=== PATIENT | female | born 1935 | race Caucasian/White ===

== ENCOUNTER 2017-10-08 14:30 | Emergency (ER) | payer MEDICARE ==
[~2017-10-08] VITALS: Ht 162.6 cm; Wt 54.5 kg
[~2017-10-08 14:30] MED LIST: FISH1000 PO; MULT-65 PO; ZOFR4TAB3 SL
[2017-10-08] MEDS ORDERED: IOHEXOL 350 MG/ML 10 ML VIAL (for RAD DIAG) IVCONTRAST ONE (14:31)
[2017-10-08] MEDS ORDERED: GADODIAMIDE PF 287 MG/ML 20 ML VIAL (for RAD MRI) IV PUSH ONE (14:31)
[2017-10-08 14:33] VITALS: BP 137/65; PULSE 67; RESP 13; TEMP 97.4; O2SAT 100
[2017-10-08 14:44] VITALS: BP 141/64; PULSE 61; RESP 14; O2SAT 100
[2017-10-08] MEDS ORDERED: ONDANSETRON HCL 4 MG/2 ML VIAL IV PUSH ONE (14:45)
[2017-10-08 14:58] VITALS: O2SAT 100
[2017-10-08] MEDS ORDERED: MORPHINE SULFATE 2 MG/ML INJ IV PUSH ONE (15:00)
[2017-10-08] MEDS ORDERED: SODIUM CHLORID 0.9% 500 ML INJ 500 ML IV ONE (15:00)
[2017-10-08] MEDS ORDERED: MORPHINE SULFATE 4 MG/ML INJ IV PUSH ONE (15:00)
--- NOTE | 2017-10-08 15:08 | PD ---
HPI Chief Complaint: Headache Time Seen by Provider: 14:40 Travel History International Travel<30 days: No Contact w/Intl Traveler<30days: No Traveled to known affect area: No History of Present Illness HPI 82-year-old female that presents to the ED for evaluation of nausea vomiting and headache. Per patient she doesn't really have a headache but more like a pressure. Per patient the pressure goes to her neck as well. Per patient the pain is 2 out of 10. Per patient she is feels very very nauseous. She has a history of aneurysm and was told by Dr. Osullivan to come here to get evaluated. She 's never had any bleed. She takes no blood thinners. She does have a history of high blood pressure. She is unable to tolerate anything today. She threw up multiple times. She's not been able to be anything today. Last and she had anything was yesterday night. Denies any chest pain or shortness of breath. No numbness, tilling, weakness. She says that closing her eyes makes her better. Allergies to sulfa and metronidazole. Denies any falls or injuries. Has not had surgery for the aneurysm. PFSH Past Medical History Asthma: Yes ( CHILD) Neurologic: Yes (ANEURYSM) Para: 5 Past Surgical History Joint Replacement: Yes (RIGHT KNEE REPLACEMENT) Tonsillectomy: Yes Other Surgery: Yes (HEMMORHOIDECTOMY) Social History Alcohol Use: Yes (DAILY) Tobacco Use: No Substance Use: No Allergies-Medications (Allergen,Severity, Reaction): Coded Allergies: metronidazole (Unverified Adverse Reaction, Severe, VOMIT, 10/08/17) Sulfa (Sulfonamide Antibiotics) (Unverified Adverse Reaction, Intermediate , RASH, 10/08/17) Reported Meds & Prescriptions Reported Meds & Active Scripts Active Zofran ODT (Ondansetron HCl) 4 Mg Tab 4 Mg SL Q6H PRN FOR NAUSEA/VOMITING Reported Fish Oil 1,000 Mg Cap 1,000 Mg PO DAILY Multi-Vitamin Daily (Multivitamins) Daily Tab 1 Tab PO DAILY Review of Systems Except as stated in HPI: all other systems reviewed are Neg Physical Exam Narrative GENERAL: SKIN: Warm and dry. HEAD: Atraumatic. Normocephalic. EYES: Pupils equal and round 4 mms reactive to light and accommodation. No scleral icterus. No injection or drainage. ENT: No nasal bleeding or discharge. Mucous membranes pink and moist. Tongue is midline. No uvula deviation. NECK: Trachea midline. No JVD. CARDIOVASCULAR: Regular rate and rhythm. No murmurs, S3, S4. RESPIRATORY: No accessory muscle use. Clear to auscultation. Breath sounds equal bilaterally. GASTROINTESTINAL: Abdomen soft, non-tender, nondistended. Hepatic and splenic margins not palpable. MUSCULOSKELETAL: Extremities without clubbing, cyanosis, or edema. No obvious deformities. Full range of motion of the upper and lower extremities bilaterally. 2+ pulses bilaterally. NEUROLOGICAL: Awake and alert. No obvious cranial nerve deficits. Motor grossly within normal limits. Five out of 5 muscle strength in the arms and legs. Normal speech. PSYCHIATRIC: Appropriate mood and affect; insight and judgment normal. Data Data Last Documented VS Vital Signs Date Time Temp Pulse Resp B/P (MAP) Pulse Ox O2 Delivery O2 Flow Rate FiO2 10/08/17 19:13 10/08/17 14:58 100 Room Air 10/08/17 14:44 61 14 10/08/17 14:33 97.4 Orders Orders Complete Blood Count With Diff (10/08/17 14:40) Basic Metabolic Panel (Bmp) (10/08/17 14:40) Comprehensive Metabolic Panel (10/08/17 14:40) Prothrombin Time / Inr (Pt) (10/08/17 14:40) Act Partial Throm Time (Ptt) (10/08/17 14:40) Magnesium (Mg) (10/08/17 14:40) Ct Brain W/O Iv Contrast(Rout) (10/08/17 14:40) Iv Access Insert/Monitor (10/08/17 14:40) Ecg Monitoring (10/08/17 14:40) Oximetry (10/08/17 14:40) Ondansetron Inj (Zofran Inj) (10/08/17 14:45) Cta Brain W Iv Contrast W 3d (10/08/17 ) Cta Neck W Iv Contrast W 3d (10/08/17 ) Morphine Inj (Morphine Inj) (10/08/17 15:00) Sodium Chlorid 0.9% 500 Ml Inj (Ns 500 M (10/08/17 15:00) Morphine Inj (Morphine Inj) (10/08/17 15:00) Troponin I (10/08/17 15:12) Electrocardiogram (10/08/17 ) Chest, Single Ap (10/08/17 ) Prochlorperazine Inj (Compazine Inj) (10/08/17 15:15) Diphenhydramine Inj (Benadryl Inj) (10/08/17 15:15) Iohexol 350 Inj (Omnipaque 350 Inj) (10/08/17 14:31) Lipase (10/08/17 16:40) Mra Carotids W Contrast (10/08/17 ) Mra Brain W/O Contrast (Cow) (10/08/17 ) Gadodiamide Pf Inj (Omniscan Pf Inj) (10/08/17 14:31) Ed Discharge Order (10/08/17 19:10) Labs Laboratory Tests Test 10/08/17 15:00 10/08/17 16:55 White Blood Count 5.1 TH/MM3 Red Blood Count 3.77 MIL/MM3 Hemoglobin 13.1 GM/DL Hematocrit 36.7 % Mean Corpuscular Volume 97.5 FL Mean Corpuscular Hemoglobin 34.8 PG Mean Corpuscular Hemoglobin Concent 35.7 % Red Cell Distribution Width 14.1 % Platelet Count 273 TH/MM3 Mean Platelet Volume 8.5 FL Neutrophils (%) (Auto) 61.6 % Lymphocytes (%) (Auto) 30.0 % Monocytes (%) (Auto) 6.8 % Eosinophils (%) (Auto) 0.5 % Basophils (%) (Auto) 1.1 % Neutrophils # (Auto) 3.1 TH/MM3 Lymphocytes # (Auto) 1.5 TH/MM3 Monocytes # (Auto) 0.3 TH/MM3 Eosinophils # (Auto) 0.0 TH/MM3 Basophils # (Auto) 0.1 TH/MM3 CBC Comment DIFF FINAL Differential Comment Prothrombin Time 10.4 SEC Prothromb Time International Ratio 0.9 RATIO Activated Partial Thromboplast Time 23.1 SEC Blood Urea Nitrogen 14 MG/DL Creatinine 0.62 MG/DL Random Glucose 143 MG/DL Total Protein 7.0 GM/DL Albumin 3.6 GM/DL Calcium Level 8.9 MG/DL Magnesium Level 2.0 MG/DL Alkaline Phosphatase 99 U/L Aspartate Amino Transf (AST/SGOT) 16 U/L Alanine Aminotransferase (ALT/SGPT) 15 U/L Total Bilirubin 0.5 MG/DL Sodium Level 135 MEQ/L Potassium Level 3.5 MEQ/L Chloride Level 101 MEQ/L Carbon Dioxide Level 21.9 MEQ/L Anion Gap 12 MEQ/L Estimat Glomerular Filtration Rate 92 ML/MIN Troponin I LESS THAN 0.02 NG/ML Lipase 77 U/L MDM Medical Decision Making Medical Screen Exam Complete: Yes Emergency Medical Condition: Yes Medical Record Reviewed: Yes Interpretation(s) Last Impressions Head CT 10/08/17 1440 Signed Impressions: Service Date/Time: Sunday, October 08, 2017 15:57 - CONCLUSION: 1. No acute intracranial abnormality. 2. Prominent calcification in the region of the right carotid terminus may reflect aneurysm wall calcification in this patient with reported history of aneurysm. Jesús Darling MD Neck Magnetic Resonance Angiography 10/08/17 0000 Signed Impressions: Service Date/Time: Sunday, October 08, 2017 17:56 - CONCLUSION: 1. Patent carotid arteries and vertebral arteries bilaterally. The right vertebral artery is dominant. 2. 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 Please see the MRA of the brain reported separately. Danyel Jaqeuz Jr., MD Neck CTA 10/08/17 0000 Signed Impressions: Service Date/Time: Sunday, October 08, 2017 16:01 - CONCLUSION: 1. Atherosclerotic calcification of the arch and cervical vessels are patent without stenosis. 2. Patient is right vertebral dominant. Jordan Fajardo MD Head Magnetic Resonance Angiography 10/08/17 0000 Signed Impressions: Service Date/Time: Sunday, October 08, 2017 17:56 - CONCLUSION: Normal examination. 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 This measures 3 x 3 x 3 mm. Dnayel Jaquez Jr., MD Head CTA 10/08/17 0000 Signed Impressions: Service Date/Time: Sunday, October 08, 2017 16:01 - CONCLUSION: 5 mm, partially calcified wide neck aneurysm off the supraclinoid portion of the right internal carotid artery. Jordan Fajardo MD Chest X-Ray 10/08/17 0000 Signed Impressions: Service Date/Time: Sunday, October 08, 2017 15:20 - CONCLUSION: No acute disease. Oumar Bradley MD FACR CBC & BMP Diagram 10/08/17 15:00 Total Protein 7.0, Albumin 3.6, Calcium Level 8.9, Magnesium Level 2.0, Alkaline Phosphatase 99, Aspartate Amino Transf (AST/SGOT) 16, Alanine Aminotransferase (ALT/SGPT) 15, Total Bilirubin 0.5 Differential Diagnosis CVA versus bleed versus headache versus tension headache versus gastritis versus nausea and vomiting versus ICH Narrative Course 82-year-old female that presents to the ED for evaluation of headache and history of aneurysm. Patient was properly examined and was found to have signs and symptoms of unclear etiology but definite concerning for bleed. The patient does not appear to have any neurological deficits. I suspect that some of her symptoms are more related to the nausea. Patient was given IV antiemetics as well as fluids. My attending Dr. Coleman himself evaluated the patient and recommends CT and CTA's. This was ordered. We'll wait for labs per my attendings recommendations. Labs and imaging show aneurysm which appears to be stable at this time. Case was discussed with Dr. Osullivan who recommended that we do an MRA to rule out any sign of bleed. MRAs were positive for aneurysm. This was discussed with Dr. Fu who agrees the patient can be discharged home. Patient herself feels improved. My attending Dr. Patel was made aware of all findings and agrees with discharge. Patient was discharged with prescription for tramadol as well as Zofran. Told to use only if needed. She was instructed that if anything changes she is to come back to the ED. Follow with PCP. See ED for worsening symptoms. Diagnosis Primary Impression: Cephalgia Qualified Codes: G44.209 - Tension-type headache, unspecified, not intractable Additional Impressions: Nausea & vomiting Qualified Codes: R11.2 - Nausea with vomiting, unspecified Aneurysm Referrals: Darell Osullivan MD Patient Instructions: General Instructions, Narcotic given in the ED Additional Instructions: Take medications as prescribed. Follow-up with PCP. See ED for any worsening symptoms. Do not drink or drive while taking pain medication. Apply ice or heat as needed for pain Med/Other Pt SpecificInfo: Prescription(s) given Scripts Tramadol (Tramadol) 50 Mg Tab 50 MG PO Q6H Y for PAIN, #10 TAB 0 Refills Prov: Samuel Coleman MD 10/08/17 Ondansetron Odt (Zofran Odt) 4 Mg Tab 4 MG SL Q6HR Y for Nausea/Vomiting, #20 TAB 0 Refills Prov: Samuel Coleman MD 10/08/17 Disposition: 01 DISCHARGE HOME Condition: Shaun Stacy Oct 08, 2017 15:08
[2017-10-08] MEDS ORDERED: PROCHLORPERAZINE INJ 10 MG/2 ML VIAL IV PUSH ONE (15:15)
[2017-10-08] MEDS ORDERED: diphenhydrAMINE HCL 50 MG/ML VIAL IV PUSH ONE (15:15)
[2017-10-08 15:24] LABS: AUTOMATED NEUTROPHIL # 3.1 TH/MM3 (1.8-7.7); BASOPHIL # 0.1 TH/MM3 (0-0.2); BASOPHIL % 1.1 % (0.0-2.0); EOSINOPHIL % 0.5 % (0.0-4.0); HEMATOCRIT 36.7 % (35.0-46.0); HEMO FLAGS DIFF FINAL; LYMPHOCYTE # 1.5 TH/MM3 (1.0-4.8); MEAN CELL VOLUME 97.5 FL (80.0-100.0); MEAN CORPUSCULAR HEMOGLOBIN 34.8 PG (27.0-34.0); MEAN CORPUSCULAR HGB CONC 35.7 % (32.0-36.0); MONO % 6.8 % (0.0-8.0); NEUT % 61.6 % (16.0-70.0); PLATELET COUNT 273 TH/MM3 (150-450); RED BLOOD COUNT 3.77 MIL/MM3 (4.00-5.30); RED CELL DISTRIBUTION WIDTH 14.1 % (11.6-17.2); WHITE BLOOD COUNT 5.1 TH/MM3 (4.0-11.0)
[2017-10-08 15:35] LABS: APTT (PATIENT) 23.1 SEC (24.3-30.1); INTERNATIONAL NORMALIZED RATIO 0.9 RATIO; PROTHROMBIN TIME - PATIENT 10.4 SEC (9.8-11.6)
[2017-10-08 15:38] LABS: ALT (GPT) 15 U/L (10-53); ANION GAP 12 MEQ/L (5-15); AST (GOT) 16 U/L (15-37); BICARBONATE 21.9 MEQ/L (21.0-32.0); BLOOD UREA NITROGEN 14 MG/DL (7-18); CHLORIDE 101 MEQ/L (98-107); GLOMERULAR FILTRATION RATE 92 ML/MIN (>89); POTASSIUM 3.5 MEQ/L (3.5-5.1); SODIUM (NA) 135 MEQ/L (136-145)
[2017-10-08 15:40] LABS: ALKALINE PHOSPHATASE 99 U/L (45-117); TOTAL BILIRUBIN ADULT 0.5 MG/DL (0.2-1.0)
--- NOTE | 2017-10-08 16:02 | PD ---
Data Data Last Documented VS Vital Signs Date Time Temp Pulse Resp B/P (MAP) Pulse Ox O2 Delivery O2 Flow Rate FiO2 10/08/17 19:13 10/08/17 14:58 100 Room Air 10/08/17 14:44 61 14 10/08/17 14:33 97.4 Orders Orders Complete Blood Count With Diff (10/08/17 14:40) Basic Metabolic Panel (Bmp) (10/08/17 14:40) Comprehensive Metabolic Panel (10/08/17 14:40) Prothrombin Time / Inr (Pt) (10/08/17 14:40) Act Partial Throm Time (Ptt) (10/08/17 14:40) Magnesium (Mg) (10/08/17 14:40) Ct Brain W/O Iv Contrast(Rout) (10/08/17 14:40) Iv Access Insert/Monitor (10/08/17 14:40) Ecg Monitoring (10/08/17 14:40) Oximetry (10/08/17 14:40) Ondansetron Inj (Zofran Inj) (10/08/17 14:45) Cta Brain W Iv Contrast W 3d (10/08/17 ) Cta Neck W Iv Contrast W 3d (10/08/17 ) Morphine Inj (Morphine Inj) (10/08/17 15:00) Sodium Chlorid 0.9% 500 Ml Inj (Ns 500 M (10/08/17 15:00) Morphine Inj (Morphine Inj) (10/08/17 15:00) Troponin I (10/08/17 15:12) Electrocardiogram (10/08/17 ) Chest, Single Ap (10/08/17 ) Prochlorperazine Inj (Compazine Inj) (10/08/17 15:15) Diphenhydramine Inj (Benadryl Inj) (10/08/17 15:15) Iohexol 350 Inj (Omnipaque 350 Inj) (10/08/17 14:31) Lipase (10/08/17 16:40) Mra Carotids W Contrast (10/08/17 ) Mra Brain W/O Contrast (Cow) (10/08/17 ) Gadodiamide Pf Inj (Omniscan Pf Inj) (10/08/17 14:31) Ed Discharge Order (10/08/17 19:10) Labs Laboratory Tests Test 10/08/17 15:00 10/08/17 16:55 White Blood Count 5.1 TH/MM3 Red Blood Count 3.77 MIL/MM3 Hemoglobin 13.1 GM/DL Hematocrit 36.7 % Mean Corpuscular Volume 97.5 FL Mean Corpuscular Hemoglobin 34.8 PG Mean Corpuscular Hemoglobin Concent 35.7 % Red Cell Distribution Width 14.1 % Platelet Count 273 TH/MM3 Mean Platelet Volume 8.5 FL Neutrophils (%) (Auto) 61.6 % Lymphocytes (%) (Auto) 30.0 % Monocytes (%) (Auto) 6.8 % Eosinophils (%) (Auto) 0.5 % Basophils (%) (Auto) 1.1 % Neutrophils # (Auto) 3.1 TH/MM3 Lymphocytes # (Auto) 1.5 TH/MM3 Monocytes # (Auto) 0.3 TH/MM3 Eosinophils # (Auto) 0.0 TH/MM3 Basophils # (Auto) 0.1 TH/MM3 CBC Comment DIFF FINAL Differential Comment Prothrombin Time 10.4 SEC Prothromb Time International Ratio 0.9 RATIO Activated Partial Thromboplast Time 23.1 SEC Blood Urea Nitrogen 14 MG/DL Creatinine 0.62 MG/DL Random Glucose 143 MG/DL Total Protein 7.0 GM/DL Albumin 3.6 GM/DL Calcium Level 8.9 MG/DL Magnesium Level 2.0 MG/DL Alkaline Phosphatase 99 U/L Aspartate Amino Transf (AST/SGOT) 16 U/L Alanine Aminotransferase (ALT/SGPT) 15 U/L Total Bilirubin 0.5 MG/DL Sodium Level 135 MEQ/L Potassium Level 3.5 MEQ/L Chloride Level 101 MEQ/L Carbon Dioxide Level 21.9 MEQ/L Anion Gap 12 MEQ/L Estimat Glomerular Filtration Rate 92 ML/MIN Troponin I LESS THAN 0.02 NG/ML Lipase 77 U/L [facility] Medical Record Reviewed: Yes Supervised Visit with SUKHI: Yes Narrative Course I, Dr. Coleman, have reviewed the advance practice practitioner's documentation and am in agreement, met with the patient face to face, made the diagnosis, and the medical decision making was done by me. Vital Signs Date Time Temp Pulse Resp B/P (MAP) Pulse Ox O2 Delivery O2 Flow Rate FiO2 10/08/17 19:13 10/08/17 14:58 100 Room Air 10/08/17 14:44 61 14 141/64 (89) 100 Room Air 10/08/17 14:33 97.4 67 13 137/65 (89) 100 Scripts Tramadol (Tramadol) 50 Mg Tab 50 MG PO Q6H Y for PAIN, #10 TAB 0 Refills Prov: Samuel Coleman MD 10/08/17 Ondansetron Odt (Zofran Odt) 4 Mg Tab 4 MG SL Q6HR Y for Nausea/Vomiting, #20 TAB 0 Refills Prov: Samuel Coleman MD 10/08/17 Samuel Coleman MD Oct 08, 2017 16:02
--- NOTE | 2017-10-08 16:15 | RADRPT ---
EXAM DATE/TIME: 10/08/2017 15:20 [facility] COMPARISON: CHEST SINGLE AP, January 10, 2015, 19:08. INDICATIONS : Chest discomfort, abdominal pain MEDICAL HISTORY : None. SURGICAL HISTORY : None. ENCOUNTER: Initial ACUITY: 1 day PAIN SCORE: 0/10 LOCATION: Bilateral chest FINDINGS: A single view of the chest demonstrates the lungs to be symmetrically aerated without evidence of mas s, infiltrate or effusion. The cardiomediastinal contours are unremarkable. Degenerative changes calvin th shoulders worse on the right CONCLUSION: No acute disease. Oumar Bradley MD FACR on October 08, 2017 at 16:13 Board Certified Radiologist. This report was verified electronically.
--- NOTE | 2017-10-08 16:29 | RADRPT ---
EXAM DATE/TIME: 10/08/2017 15:57 [facility] COMPARISON: MRA BRAIN W/O CONTRAST, January 10, 2015, 20:50. CT BRAIN W/O CONTRAST, January 10, 2015, 19:28. INDICATIONS : History of aneurysm, new onset of headache. RADIATION DOSE: 56.35 CTDIvol (mGy) MEDICAL HISTORY : subarachnoid aneurysm SURGICAL HISTORY : None. ENCOUNTER: Initial ACUITY: 2 days PAIN SCALE: 5/10 LOCATION: cranial TECHNIQUE: Multiple contiguous axial images were obtained of the head. Using automated exposure control and adj ustment of the mA and/or kV according to patient size, radiation dose was kept as low as reasonably a chievable to obtain optimal diagnostic quality images. DICOM format image data is available electro nically for review and comparison. FINDINGS: CEREBRUM: Moderate cerebral volume loss. The ventricles are normal for degree of atrophy. Prominent calcificati on in the region of the right carotid terminus. No evidence of midline shift, mass lesion, hemorrhag e or acute infarction. No extra-axial fluid collections are seen. POSTERIOR FOSSA: The cerebellum and brainstem are intact. The 4th ventricle is midline. The cerebellopontine angle i s unremarkable. EXTRACRANIAL: The visualized portion of the orbits is intact. SKULL: The calvaria is intact. No evidence of skull fracture. CONCLUSION: 1. No acute intracranial abnormality. 2. Prominent calcification in the region of the right carotid terminus may reflect aneurysm wall calc ification in this patient with reported history of aneurysm. Jesús Darling MD on October 08, 2017 at 16:24 Board Certified Radiologist. This report was verified electronically.
--- NOTE | 2017-10-08 17:00 | RADRPT ---
EXAM DATE/TIME: 10/08/2017 16:01 [facility] COMPARISON: MRA BRAIN W/O CONTRAST, January 10, 2015, 20:50. INDICATIONS : History of aneurysm, new onset of headache. IV CONTRAST: 100 cc Omnipaque 350 (iohexol) IV ; Cumulative dose for multiple exams. RADIATION DOSE: 15.05 CTDIvol (mGy) ; Combined studies MEDICAL HISTORY : subarachoid henorrhage SURGICAL HISTORY : None. ENCOUNTER: Initial ACUITY: 1 day PAIN SCALE: 5/10 LOCATION: cranial TECHNIQUE: Volumetric scanning was performed using a multi-row detector CT scanner. The data was post processed with a variety of visualization algorithms including full volume maximum intensity projection, multi -planar sliding thin slab reformation, curved planar reformation, and surface rendering techniques. Using automated exposure control and adjustment of the mA and/or kV according to patient size, radiat ion dose was kept as low as reasonably achievable to obtain optimal diagnostic quality images. DICO M format image data is available electronically for review and comparison. FINDINGS: There is excellent visualization of the major intracranial arteries out to the second-order branch ve ssels. There is a anterosuperiorly directed 5 mm partially calcified aneurysm of the supraclinoid por tion of the right internal carotid artery. Intracranial vessels are otherwise patent. Patient is righ t vertebral dominance. Left vertebral is diminutive but patent. CONCLUSION: 5 mm, partially calcified wide neck aneurysm off the supraclinoid portion of the right internal carotid artery. Jordan Fajardo MD on October 08, 2017 at 16:52 Board Certified Radiologist. This report was verified electronically.
--- NOTE | 2017-10-08 17:05 | RADRPT ---
EXAM DATE/TIME: 10/08/2017 16:01 [facility] COMPARISON: No previous studies available for comparison. INDICATIONS : History of aneurysm, new onset of headache. IV CONTRAST: 100 cc Omnipaque 350 (iohexol) IV ; Cumulative dose for multiple exams. RADIATION DOSE: 15.05 CTDIvol (mGy) ; Combined studies MEDICAL HISTORY : subarachnoid hemorrhage SURGICAL HISTORY : None. ENCOUNTER: Initial ACUITY: 1 day PAIN SCALE: 5/10 LOCATION: cranial Elevated flow velocities and ICA/CCA ratios have been found to correlate with increased degrees of vessel stenosis, calculated as percentage of diameter relative to a normal segment of distal ICA/CCA. TECHNIQUE: Volumetric scanning was performed using a multirow detector CT scanner. The data was post processed with a variety of visualization algorithms including full-volume maximum intensity projection, multip lanar sliding thin-slab reformation, curved-planar reformation, and surface-rendering techniques. Us ing automated exposure control and adjustment of the mA and/or kV according to patient size, radiatio n dose was kept as low as reasonably achievable to obtain optimal diagnostic quality images. DICOM f ormat image data is available electronically for review and comparison. FINDINGS: AORTIC ARCH: There is a three-vessel origin of the great vessels from the aorta. No evidence of ostial narrowing despite scattered calcification. RIGHT CAROTID: The common carotid artery is intact. Mild calcification at the carotid bifurcation with no stenosis. The external and internal carotid arteries are intact. LEFT CAROTID: The common carotid artery is intact. The mild calcification at the bifurcation without stenosis. Th e external and internal carotid arteries are intact. VERTEBRALS: Patient is right vertebral dominance. Diminutive left vertebral is patent, however. CONCLUSION: 1. Atherosclerotic calcification of the arch and cervical vessels are patent without stenosis. 2. Patient is right vertebral dominant. Jordan Fajardo MD on October 08, 2017 at 17:01 Board Certified Radiologist. This report was verified electronically.
--- NOTE | 2017-10-08 18:40 | RADRPT ---
EXAM DATE/TIME: 10/08/2017 17:56 This report includes an Addendum and supersedes previous reports for this exam. [facility] COMPARISON: MRA BRAIN W/O CONTRAST, January 10, 2015, 20:50. INDICATIONS : Aneurysm. Pressure in head and neck. MEDICAL HISTORY : Asthma. SURGICAL HISTORY : Tonsillectomy. Hemorrhoidectomy. Right TKA. ENCOUNTER: Subsequent ACUITY: 1 day PAIN SCORE: 5/10 LOCATION: cranial Please note a normal MRA of the brain does not entirely exclude the possibility of a small aneurysm, nor the possibility of distal intracranial vessel disease. TECHNIQUE: 3D time of flight MRA was performed. Source images, multiplanar STS MIP, and 3D volume MIP reconstru ctions were reviewed. FINDINGS: There is excellent visualization of the major intracranial arteries out to the second-order branch ve ssels. There is no evidence for aneurysm, vessel truncation or stenosis, and no evidence for vascula r malformation. CONCLUSION: Normal examination. Danyel Jaquez Jr., MD on October 08, 2017 at 18:37 Board Certified Radiologist. This report was verified electronically. 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 This measures 3 x 3 x 3 mm. Danyel Jaquez Jr., MD on October 08, 2017 at 18:55 Board Certified Radiologist. This report was verified electronically.
--- NOTE | 2017-10-08 18:43 | RADRPT ---
EXAM DATE/TIME: 10/08/2017 17:56 [facility] COMPARISON: MRA BRAIN W/O CONTRAST, October 08, 2017, 17:56. CTA BRAIN W 3D RECON, October 08, 2017, 16:01. INDICATIONS : Aneurysm. Pressure in head and neck. CONTRAST: 20 cc Omniscan (gadodiamide) IV MEDICAL HISTORY : Asthma. SURGICAL HISTORY : Hemorrhoidectomy. Tonsillectomy. Right TKA. ENCOUNTER: Subsequent ACUITY: 1 day PAIN SCORE: 5/10 LOCATION: neck Percent stenosis is calculated using the diameter of the stenotic region over the diameter of the nor mal distal internal carotid artery. TECHNIQUE: Bolus infused MRA of the extracranial circulation was performed using a neurovascular coil. Post pro cessing was performed including rotating subvolume maximum intensity projections of each carotid xochilt ry, rotating full volume maximum intensity projections of both carotid arteries, sagittal and coronal sliding thin slab reformations of each carotid artery, and left oblique sliding thin slab reformatio n through the aortic arch to include the origin of the arch branch vessels. FINDINGS: AORTIC ARCH: There is a three vessel origin of the great vessels from the aorta. No evidence of ostial narrowing. RIGHT CAROTID: The common carotid artery is intact. The carotid bulb has a normal configuration without ulceration or narrowing. The internal carotid artery lumen is smooth without stenosis. The external carotid ar thaddeus is intact. LEFT CAROTID: The common carotid artery is intact. The carotid bulb has a normal configuration without ulceration or narrowing. The internal carotid artery lumen is smooth without stenosis. The external carotid ar thaddeus is intact. VERTEBRALS: The vertebral arteries have a symmetric diameter. No stenotic lesions are seen. CONCLUSION: 1. Patent carotid arteries and vertebral arteries bilaterally. The right vertebral artery is dominant . 2. 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 Please see the MRA of the brain reported separately. Danyel Jaquez Jr., MD on October 08, 2017 at 18:38 Board Certified Radiologist. This report was verified electronically.
[2017-10-08] MEDS ORDERED: TRAM50TA PO (19:19)
[2017-10-08] MEDS ORDERED: ZOFR4TAB3 SL (19:19)
--- NOTE | 2017-10-09 12:36 | EKG ---
Date Performed: 10/08/2017 Time Performed: 15:21:41 PTAGE: 82 years EKG: Poor initial anterior forces which is probably normal variant Otherwise within normal limit s Compared to previous tracing, QRS voltage has improved in the limb leads. QT interval is no longer prolonged. ABNORMAL ECG PREVIOUS TRACING : 01/10/2015 21.18 DOCTOR: Magdiel Dawson Interpretating Date/Time 10/09/2017 12:35:16
== END 2017-10-08 19:53 | disposition home or self-care (01) ==
LOC: NEPE 14:30
DX: G44.209 Tension-type headache, unspecified, not intractable (principal); R11.2 Nausea with vomiting, unspecified; I72.8 Aneurysm of other specified arteries; R94.31 Abnormal electrocardiogram [ECG] [EKG]; I10 Essential (primary) hypertension
CPT/HCPCS: 70450; 70496; 70498; 70544; 70548; 71010; 80053; 83690; 83735; 84484; 85025; 85610; 85730; 93005; 96361; 96374; 96375; 96376; 99285; A9579; J0780; J1200; J2270; J2405; J7040; Q9967